=== PATIENT | female | born 1930 | race Caucasian/White ===

== ENCOUNTER → 2016-12-07 | Outpatient (CLI) | payer OTHER ==
[~2016-12-07] MED LIST: ALENDRONATE SOD70 M1 PO; ASPIRIN81 M2 PO; CALCIUM + VITA1 EACH PO; COMBIVENT14.7 GM IN; FLOVENT7.9 GM IN; ZOCOR20 MG PO
--- NOTE | ~2016-12-07 | CR61 ---
[facility] A Service of [facility] RADIOLOGY TEXT RESULTS PATIENT: ISAIAS DALAL LOCATION: [facility] : [birth year] UNIT #: [id number] AGE: [address]: Michelle De La Fuente MD SEX: F ORDER DR: [id number] [facility] [address] [place], [place] [address] [id number] O MR#: [id number] Acc #: [id number] NAME: ISAIAS DALAL. : 1930 SEX: F STUDY DATE/TIME: 12/07/2016 11:49 UNIT: [facility] ROOM: STUDY DESCRIPTION: CR Cervical Spine Min 5 Views Attending Physician: Michelle De La Fuente M.D. Referring Physician: Michelle De La Fuente M.D. Ordering Physician: Michelle De La Fuente M.D. Primary Care Physician: Michelle De La Fuente M.D. MEDICAL IMAGING REPORT This report is preliminary unless electronic signature is present EXAMINATION Five views cervical spine. DATE 12/07/2016 HISTORY Six-month history of neck pain. Flexion and extension views requested. Patient states neck pain for over 6 months radiating from the base of the skull to the shoulders. Cannot turn her head toward the left. COMPARISON Cervical spine radiographs, 04/27/2015. FINDINGS Approximately 2 mm anterolisthesis, C2 upon C3 and C3 upon C4 is similar to the previous examination. The degree of anterolisthesis at each of these levels is not exacerbated nor reduced upon flexion or extension maneuvers. Moderate diminished disc height with anterior posterior osteophyte formation persists at C5-6, not significantly changed. Anterior osteophyte formation also seen at the superior endplate of C3. Multilevel cervical facet arthropathy is present, thought to be greatest on the right at C2-3 and C3-4 and on the left at C4-5. Osteopenic changes are present. Lung apices are clear. IMPRESSION 1. Approximately 2 mm anterolisthesis, C2 upon C3 and C3 upon C4, without evidence of cervical spine instability on flexion or extension maneuvers. 2. Moderate diminished disc height at C5-6 with anterior and posterior STS. [facility] A Service of [facility] RADIOLOGY TEXT RESULTS PATIENT: [facility]AL [facility] [birth year] UNIT #: [id number] AGE: [address]: Michelle De La Fuente MD SEX: F ORDER DR: osteophyte formation, multilevel cervical facet arthropathy, not thought to be significantly changed from prior. 3. No acute cervical spine fracture. Dictated by... Sarahi Thurston M.D. THIS IS AN ELECTRONICALLY VERIFIED REPORT Sarahi Thurston M.D. at 12/12/2016 3:26 PM KRUNAL/celeste TD: 12/08/2016 10:49 JOB #: [id number] MEDICAL IMAGING REPORT Page 1 of 1 COPY
== END | disposition home or self-care (01) ==
LOC: CRAD 11:22
DX: M54.2 Cervicalgia (principal); M43.12 Spondylolisthesis, cervical region; M25.78 Osteophyte, vertebrae; M46.92 Unspecified inflammatory spondylopathy, cervical region; M50.822 Other cervical disc disorders at C5-C6 level
CPT/HCPCS: 72050